=== PATIENT | female | born 1960 | race Caucasian/White ===

== ENCOUNTER 2025-08-23 15:24 | Outpatient (CLI) | payer OTHER, SELFPAY ==
--- NOTE | 2025-08-23 15:40 | MM_ITS ---
WS: [id number] Bilateral screening 3D tomosynthesis digital mammogram, 08/23/2025 3:39 PM Clinical Data: SCREENING Comparison: None. Findings: No spiculated masses or clustered calcifications are seen. There are no secondary signs of carcinoma. MM/MM scr BI tomosynthesis [id number] Impression: Negative bilateral mammogram unchanged. Recommend annual screening mammograms. BIRADS: 1 - Negative. FOLLOW UP: 1 Year Follow-up DENSITY: There are scattered areas of fibroglandular density. The CAD engineering drawings checker was used
== END 2025-08-23 15:25 | disposition home or self-care (01) ==
LOC: MOBLMAM 15:34
PROVIDERS: PCP Family Medicine; Visit Provider Family Medicine
DX: Z12.31 Encounter for screening mammogram for malignant neoplasm of breast (principal); R92.323 Mammographic fibroglandular density, bilateral breasts
CPT/HCPCS: 77063; 77067